=== PATIENT | male | born 1955 | race Caucasian/White ===

== ENCOUNTER 2017-11-04 16:02 | Emergency (ER) | payer MEDICARE ==
[~2017-11-04] VITALS: Ht 180.3 cm; Wt 121.0 kg
[2017-11-04] MEDS ORDERED: MAALOX/HYOSCYAMINE/LIDOCAINE 45 ML BTL ONE (16:59)
[2017-11-04] MEDS ORDERED: ASPIRIN 81 MG TABLET CHEW PO ONE (17:00)
[2017-11-04] MEDS ORDERED: MAALOX/HYOSCYAMINE/LIDOCAINE 45 ML BTL PO ONE (17:00)
[2017-11-04 17:06] VITALS: BP 121/82
[2017-11-04 17:13] LABS: INTERNATIONAL NORMALIZED RATIO 0.99 (0.93-1.1); PROTHROMBIN TIME 10.2 Seconds (9.6-11.5)
[2017-11-04 17:14] LABS: BASOPHILS # (AUTO) 0.02 x10^3/uL (0-0.1); BASOPHILS % (AUTO) 0 % (0-1); EOSINOPHILS # (AUTO) 0.15 x10^3/uL (0-0.4); EOSINOPHILS % (AUTO) 1 % (1-7); LYMPHOCYTES # (AUTO) 2.73 x10^3/uL (1-3.4); LYMPHOCYTES % (AUTO) 25 % (22-44); MD NO; MEAN CORPUSCULAR HEMOGLOBIN 30.2 pg (27.5-34.5); MEAN CORPUSCULAR HGB CONC 33.4 g/dL (33.2-36.2); MEAN CORPUSCULAR VOLUME 90.5 fL (81-97); MEAN PLATELET VOLUME 9.5 fL (7.4-10.4); MONOCYTES # (AUTO) 0.73 x10^3/uL (0.2-0.8); MONOCYTES % (AUTO) 7 % (2-9); NEUTROPHILS # (AUTO) 7.42 x10^3/uL (1.8-6.8); NEUTROPHILS % (AUTO) 67 % (42-75); PLATELET COUNT 226 x10^3/uL (130-400); RED CELL DISTRIBUTION WIDTH 15.2 % (9.4-14.8)
[2017-11-04 17:19] LABS: ALBUMIN 3.6 g/dL (3.4-5.0); ANION GAP 8 mmol/L (5-15); CALCIUM 8.8 mg/dL (8.5-10.1); CHLORIDE 105 mmol/L (98-107)
[2017-11-04 17:25] LABS: CREATININE 0.97 mg/dL (0.7-1.3); TROPONIN I < 0.015 ng/mL (0.000-0.045)
[2017-11-05] MEDS ORDERED: CLOP75TA52 PO (16:02)
[2017-11-05] MEDS ORDERED: LORA10TA3 PO (16:02)
[2017-11-05] MEDS ORDERED: ATOR40TA78 PO (16:02)
[2017-11-05] MEDS ORDERED: HUM100IN4 SC (16:02)
[2017-11-05] MEDS ORDERED: ASPI-496 PO (16:02)
[2017-11-05] MEDS ORDERED: OXYC20TA2 PO (16:02)
[2017-11-05] MEDS ORDERED: LAMO200T2 PO (16:02)
[2017-11-05] MEDS ORDERED: TRAZ100T15 PO (16:02)
[2017-11-05] MEDS ORDERED: TIZA4TAB PO (16:02)
[2017-11-05] MEDS ORDERED: QUIN20TA17 PO (16:02)
[2017-11-05] MEDS ORDERED: MORP60TA PO (16:02)
[2017-11-05] MEDS ORDERED: ALPR1TAB6 PO (16:02)
[2017-11-05] MEDS ORDERED: PREG200C PO (16:02)
[2017-11-05] MEDS ORDERED: ESCI20TA PO (16:02)
[2017-11-05] MEDS ORDERED: METF500T4 PO (16:02)
[2017-11-05] MEDS ORDERED: GLIM4TAB2 PO (16:02)
[2017-11-05] MEDS ORDERED: PANT40TA5 PO (16:02)
[2017-11-05] MEDS ORDERED: LEVO150T5 PO (16:02)
== END 2017-11-04 18:32 | disposition home or self-care (01) ==
LOC: ED 18:15
DX: R07.89 Other chest pain (principal); S76.212A Strain of adductor muscle, fascia and tendon of left thigh, initial encounter; I25.2 Old myocardial infarction; F17.200 Nicotine dependence, unspecified, uncomplicated; X58.XXXA Exposure to other specified factors, initial encounter; Y93.89 Activity, other specified; Y99.8 Other external cause status; Y92.89 Other specified places as the place of occurrence of the external cause
CPT/HCPCS: 36415; 71045; 80048; 82040; 83880; 84484; 85025; 85610; 93005; 99285

== ENCOUNTER 2017-11-05 12:38 | Inpatient (IN) | payer MEDICARE ==
[~2017-11-05] VITALS: Ht 180.3 cm; Wt 114.9 kg
[2017-11-05] MEDS ORDERED: KETAMINE 100 MG/ML, 5ML IV ONE (14:30)
[2017-11-05] MEDS ORDERED: KETAMINE 50 MG/ML, 10ML ONE (14:33)
[2017-11-05 15:11] LABS: TROPONIN I < 0.015 ng/mL (0.000-0.045)
[2017-11-05] MEDS ORDERED: ATOR40TA78 PO (16:02)
[2017-11-05] MEDS ORDERED: LAMO200T2 PO (16:02)
[2017-11-05] MEDS ORDERED: PANT40TA5 PO (16:02)
[2017-11-05] MEDS ORDERED: TIZA4TAB PO (16:02)
[2017-11-05] MEDS ORDERED: METF500T5 PO (16:02)
[2017-11-05] MEDS ORDERED: OXYC20TA2 PO (16:02)
[2017-11-05] MEDS ORDERED: HUM100IN4 SC (16:02)
[2017-11-05] MEDS ORDERED: QUIN20TA17 PO (16:02)
[2017-11-05] MEDS ORDERED: MORP60TA PO (16:02)
[2017-11-05] MEDS ORDERED: TRAZ100T15 PO (16:02)
[2017-11-05] MEDS ORDERED: GLIM4TAB2 PO (16:02)
[2017-11-05] MEDS ORDERED: LORA10TA3 PO (16:02)
[2017-11-05] MEDS ORDERED: PREG200C PO (16:02)
[2017-11-05] MEDS ORDERED: ALPR1TAB6 PO (16:02)
[2017-11-05] MEDS ORDERED: CLOP75TA52 PO (16:02)
[2017-11-05] MEDS ORDERED: ASPI-496 PO (16:02)
[2017-11-05] MEDS ORDERED: LEVO150T5 PO (16:02)
[2017-11-05] MEDS ORDERED: ESCI20TA PO (16:02)
[2017-11-05] MEDS ORDERED: POLYETHYLENE GLYCOL 17 GM PACKET PO PRN (16:30)
[2017-11-05] MEDS ORDERED: ONDANSETRON ODT 4 MG PO PRN (16:30)
[2017-11-05] MEDS ORDERED: ONDANSETRON 2MG/ML, 2ML IVPush PRN (16:30)
[2017-11-05] MEDS ORDERED: DOCUSATE 100 MG CAPSULE PO PRN (16:30)
[2017-11-05] MEDS ORDERED: LABETALOL 5MG/ML, 20ML IVPush PRN (16:30)
[2017-11-05] MEDS ORDERED: ALPRazolam 1MG TABLET PO PRN (16:30)
[2017-11-05] MEDS ORDERED: HEPARIN 5,000 UNITS/ML, 1ML ONE (17:18)
[2017-11-05] MEDS ORDERED: NICOTINE 7 MG/24 HR PATCH.TD24 ONE (17:19)
[2017-11-05] MEDS: HEPARIN 5,000 UNITS/ML, 1ML SQ SCH (17:45)
[2017-11-05] MEDS: NICOTINE 7 MG/24 HR PATCH.TD24 TD SCH (17:45)
[2017-11-05 17:51] LABS: THYROID STIMULATING HORMONE 4.14 mIU/L (0.358-3.740)
[2017-11-05 18:08] LABS: HEMOGLOBIN A1C 9.9 % (4.2-6.3)
[2017-11-05] MEDS ORDERED: ATORVASTATIN 10 MG TABLET PO SCH (21:00)
[2017-11-05] MEDS: LAMOTRIGINE 200 MG TABLET PO SCH (21:15)
[2017-11-05] MEDS: metFORMIN 850 MG TABLET PO SCH (21:15)
[2017-11-05] MEDS: TRAZODONE 50MG TABLET PO SCH (21:15)
[2017-11-05] MEDS: PREGABALIN 200 MG CAPSULE PO SCH (21:16)
[2017-11-05] MEDS: OXYcodone IR 5MG TABLET PO PRN (21:20)
[2017-11-05] MEDS: INSULIN LISPRO 100 UNITS/ML, PEN SQ-INSULIN SCH ×2 (21:25→21:27)
[2017-11-05] MEDS: INSULIN HUMULIN 70/30, 3ML PEN SQ-INSULIN SCH (21:48)
[2017-11-06 00:08] VITALS: BP 144/74
[2017-11-06] MEDS: HEPARIN 5,000 UNITS/ML, 1ML SQ SCH ×3 (01:05→17:14)
[2017-11-06 05:56] LABS: BASOPHILS # (AUTO) 0.06 x10^3/uL (0-0.1); BASOPHILS % (AUTO) 1 % (0-1); EOSINOPHILS # (AUTO) 0.16 x10^3/uL (0-0.4); EOSINOPHILS % (AUTO) 2 % (1-7); LYMPHOCYTES # (AUTO) 3.16 x10^3/uL (1-3.4); LYMPHOCYTES % (AUTO) 37 % (22-44); MD NO; MEAN CORPUSCULAR HGB CONC 32.9 g/dL (33.2-36.2); MEAN CORPUSCULAR VOLUME 91.3 fL (81-97); MEAN PLATELET VOLUME 9.5 fL (7.4-10.4); MONOCYTES # (AUTO) 0.66 x10^3/uL (0.2-0.8); MONOCYTES % (AUTO) 8 % (2-9); NEUTROPHILS # (AUTO) 4.41 x10^3/uL (1.8-6.8); NEUTROPHILS % (AUTO) 52 % (42-75); PLATELET COUNT 195 x10^3/uL (130-400); RED BLOOD COUNT 4.82 x10^6/uL (4.38-5.82); RED CELL DISTRIBUTION WIDTH 15.2 % (9.4-14.8)
[2017-11-06 06:10] LABS: ALBUMIN 3.2 g/dL (3.4-5.0); ANION GAP 7 mmol/L (5-15); CALCIUM 8.2 mg/dL (8.5-10.1); CHLORIDE 104 mmol/L (98-107)
[2017-11-06 06:12] LABS: ALANINE AMINOTRANSFERASE 80 U/L (12-78); ALKALINE PHOSPHATASE 115 U/L (45-117); BILIRUBIN,TOTAL 0.5 mg/dL (0.2-1.0); CREATININE 1.12 mg/dL (0.7-1.3); TOTAL PROTEIN 6.3 g/dL (6.4-8.2)
[2017-11-06] MEDS ORDERED: NITROGLYCERIN 0.4 MG/SPRAY SL PRN ×2 (06:30)
[2017-11-06] MEDS ORDERED: NITROGLYCERIN 0.4 MG BOTTLE (25 TABS) SL PRN (06:30)
[2017-11-06 06:39] VITALS: BP 167/71
[2017-11-06 07:09] LABS: CHOL/HDL RATIO 3.6; LDL/HDL RATIO 1.7 (0.5-3.0)
[2017-11-06 07:47] LABS: TROPONIN I < 0.015 ng/mL (0.000-0.045)
[2017-11-06] MEDS: INSULIN LISPRO 100 UNITS/ML, PEN SQ-INSULIN SCH ×4 (08:00→20:54)
[2017-11-06] MEDS: INSULIN HUMULIN 70/30, 3ML PEN SQ-INSULIN SCH (08:00)
[2017-11-06] MEDS: PREGABALIN 200 MG CAPSULE PO SCH ×2 (08:01→20:40)
[2017-11-06] MEDS: LORATADINE 10 MG TABLET PO SCH (08:01)
[2017-11-06] MEDS: CLOPIDOGREL 75 MG TABLET PO SCH (08:01)
[2017-11-06] MEDS: QUINAPRIL 20MG TABLET PO SCH (08:01)
[2017-11-06] MEDS: GLIMEPIRIDE 4 MG TABLET PO SCH (08:01)
[2017-11-06] MEDS: PANTOPROZOLE 40MG TABLET PO SCH (08:01)
[2017-11-06] MEDS: metFORMIN 850 MG TABLET PO SCH ×3 (08:01→20:40)
[2017-11-06] MEDS: CITALOPRAM 20 MG TABLET PO SCH (08:02)
[2017-11-06] MEDS: LEVOTHYROXINE 150 MCG TABLET PO SCH (08:02)
[2017-11-06] MEDS: LAMOTRIGINE 200 MG TABLET PO SCH ×2 (08:02→20:40)
[2017-11-06] MEDS: ASPIRIN 81 MG TABLET EC PO SCH (08:02)
[2017-11-06] MEDS: OXYcodone IR 5MG TABLET PO PRN ×2 (08:02→12:52)
[2017-11-06] MEDS ORDERED: REGADENOSON 0.4 MG/5 ML SYRINGE ONE (10:53)
[2017-11-06 12:48] VITALS: BP 135/81
[2017-11-06] MEDS: NICOTINE 7 MG/24 HR PATCH.TD24 TD SCH (17:13)
[2017-11-06 18:25] VITALS: BP 122/67
[2017-11-06] MEDS: TRAZODONE 50MG TABLET PO SCH (20:39)
[2017-11-06] MEDS ORDERED: ATORVASTATIN 40 MG TABLET PO SCH (21:00)
[2017-11-06] MEDS ORDERED: INSULIN GLARGINE 100 UNITS/ML, PEN SQ-INSULIN SCH (21:00)
[2017-11-07] MEDS: HEPARIN 5,000 UNITS/ML, 1ML SQ SCH ×2 (00:57→08:49)
[2017-11-07 03:36] VITALS: BP 112/80
[2017-11-07] MEDS: ACETAMINOPHEN 325 MG TABLET PO PRN ×2 (04:02→13:00)
[2017-11-07] MEDS: INSULIN LISPRO 100 UNITS/ML, PEN SQ-INSULIN SCH ×2 (07:00→11:00)
[2017-11-07 08:10] VITALS: BP 150/86
[2017-11-07] MEDS: OXYcodone IR 5MG TABLET PO PRN (08:33)
[2017-11-07] MEDS: CLOPIDOGREL 75 MG TABLET PO SCH (08:34)
[2017-11-07] MEDS: ASPIRIN 81 MG TABLET EC PO SCH (08:34)
[2017-11-07] MEDS: metFORMIN 850 MG TABLET PO SCH (08:34)
[2017-11-07] MEDS: GLIMEPIRIDE 4 MG TABLET PO SCH (08:34)
[2017-11-07] MEDS: QUINAPRIL 20MG TABLET PO SCH (08:35)
[2017-11-07] MEDS: PREGABALIN 200 MG CAPSULE PO SCH (08:48)
[2017-11-07] MEDS: LAMOTRIGINE 200 MG TABLET PO SCH (08:48)
[2017-11-07] MEDS: LORATADINE 10 MG TABLET PO SCH (08:49)
[2017-11-07] MEDS: LEVOTHYROXINE 150 MCG TABLET PO SCH (08:49)
[2017-11-07] MEDS: PANTOPROZOLE 40MG TABLET PO SCH (08:49)
[2017-11-07] MEDS: CITALOPRAM 20 MG TABLET PO SCH (08:49)
== END 2017-11-07 15:30 | disposition home or self-care (01) | DRG 309 ==
LOC: ED 15:50 → EDIP 15:51 → ED 16:16 → 5SO 18:22
PROVIDERS: ADMIT Family Medicine; ATTEND Family Medicine
DX: R00.1 Bradycardia, unspecified (principal); I24.9 Acute ischemic heart disease, unspecified; Z95.5 Presence of coronary angioplasty implant and graft; E11.9 Type 2 diabetes mellitus without complications; F32.9 Major depressive disorder, single episode, unspecified; F41.9 Anxiety disorder, unspecified; E03.9 Hypothyroidism, unspecified; M79.605 Pain in left leg; F17.210 Nicotine dependence, cigarettes, uncomplicated; G47.33 Obstructive sleep apnea (adult) (pediatric); G89.29 Other chronic pain; I10 Essential (primary) hypertension; I25.10 Atherosclerotic heart disease of native coronary artery without angina pectoris; M51.36 Other intervertebral disc degeneration, lumbar region; E11.649 Type 2 diabetes mellitus with hypoglycemia without coma; Z79.899 Other long term (current) drug therapy; Z79.82 Long term (current) use of aspirin; I25.2 Old myocardial infarction; Z79.4 Long term (current) use of insulin
CPT/HCPCS: 36415; 72110; 78452; 80053; 80061; 82962; 83036; 83880; 84443; 84484; 85025; 93005; 93017; 93306; 94660; 96374; J1644; J2405; J2785; A9502; C9898; J1815

== ENCOUNTER 2018-03-21 12:09 | Observation (INO) | payer MEDICARE ==
[~2018-03-21] VITALS: Ht 180.3 cm; Wt 118.0 kg
[~2018-03-21 12:09] MED LIST: ALPR1TAB6 PO; ASPI-496 PO; ATOR40TA78 PO; CLOP75TA52 PO; ESCI20TA PO; GLIM4TAB2 PO; HUM100IN4 SC; LAMO200T2 PO; LEVO150T5 PO; LORA10TA3 PO; METF500T17 PO; MORP60TA PO; OXYC20TA2 PO; PANT40TA5 PO; PREG200C PO; QUIN20TA17 PO; TIZA4TAB PO; TRAZ-137 PO
[2018-03-21 12:57] LABS: BASOPHILS # (AUTO) 0.06 x10^3/uL (0-0.1); BASOPHILS % (AUTO) 1 % (0-1); EOSINOPHILS # (AUTO) 0.23 x10^3/uL (0-0.4); EOSINOPHILS % (AUTO) 3 % (1-7); LYMPHOCYTES # (AUTO) 2.28 x10^3/uL (1-3.4); LYMPHOCYTES % (AUTO) 29 % (22-44); MD NO; MEAN CORPUSCULAR HEMOGLOBIN 30.4 pg (27.5-34.5); MEAN CORPUSCULAR HGB CONC 32.8 g/dL (33.2-36.2); MEAN CORPUSCULAR VOLUME 92.7 fL (81-97); MEAN PLATELET VOLUME 9.3 fL (7.4-10.4); MONOCYTES % (AUTO) 6 % (2-9); NEUTROPHILS # (AUTO) 4.74 x10^3/uL (1.8-6.8); NEUTROPHILS % (AUTO) 61 % (42-75); PLATELET COUNT 189 x10^3/uL (130-400); RED BLOOD COUNT 4.74 x10^6/uL (4.38-5.82); RED CELL DISTRIBUTION WIDTH 13.6 % (9.4-14.8)
[2018-03-21 13:06] LABS: INTERNATIONAL NORMALIZED RATIO 0.96 (0.93-1.1)
[2018-03-21 13:09] LABS: ALANINE AMINOTRANSFERASE 24 U/L (12-78); ALBUMIN 3.4 g/dL (3.4-5.0); ANION GAP 8 mmol/L (5-15); CALCIUM 8.3 mg/dL (8.5-10.1); CHLORIDE 102 mmol/L (98-107); CREATININE 0.86 mg/dL (0.7-1.3)
[2018-03-21 13:10] LABS: AMPHETAMINE SCREEN, URINE Negative (Negative); BARBITURATE SCREEN, URINE Negative (Negative); BENZODIAZEPINE SCREEN, URINE Positive (Negative); CANNABINOID SCREEN, URINE Negative (Negative); COCAINE SCREEN, URINE Negative (Negative); METHADONE SCREEN, URINE Negative (Negative); OPIATE SCREEN, URINE Positive (Negative)
[2018-03-21 13:12] LABS: ALKALINE PHOSPHATASE 90 U/L (45-117); BILIRUBIN,TOTAL 0.4 mg/dL (0.2-1.0); TOTAL PROTEIN 6.6 g/dL (6.4-8.2); TROPONIN I < 0.015 ng/mL (0.000-0.045)
[2018-03-21] MEDS ORDERED: ASPIRIN 325 MG TABLET PO ONE (13:30)
[2018-03-21] MEDS ORDERED: ACETAMINOPHEN 325 MG TABLET PO PRN (14:00)
[2018-03-21] MEDS ORDERED: LABETALOL 5MG/ML, 20ML IVPush PRN (14:00)
[2018-03-21] MEDS ORDERED: ENALAPRILAT 1.25 MG/ML, 2ML IVPush PRN (14:00)
[2018-03-21] MEDS ORDERED: ENOXAPARIN 40 MG/0.4 ML SQ SCH (14:00)
[2018-03-21] MEDS ORDERED: ONDANSETRON 2MG/ML, 2ML IVPush PRN (14:00)
[2018-03-21] MEDS ORDERED: NICOTINE 14MG/24 HR PATCH.TD24 TD SCH (14:00)
[2018-03-21] MEDS ORDERED: morphine SULFATE 10 MG/ML, 1ML IVPush PRN (14:00)
[2018-03-21] MEDS ORDERED: hydrALAzine 20 MG/ML, 1ML IVPush PRN (14:00)
[2018-03-21] MEDS: PLEASE ENTER HEIGHT MC SCH ×2 (14:30→21:39)
[2018-03-21 14:39] VITALS: BP 146/65
[2018-03-21] MEDS: metFORMIN 850 MG TABLET PO SCH ×2 (16:16→20:13)
[2018-03-21] MEDS: OXYcodone IR 5MG TABLET PO PRN ×2 (16:16→20:13)
[2018-03-21] MEDS: INSULIN LISPRO 100 UNITS/ML, PEN SQ-INSULIN SCH ×2 (18:35→20:45)
[2018-03-21 20:00] VITALS: BP 123/70
[2018-03-21] MEDS ORDERED: ATORVASTATIN 10 MG TABLET PO SCH (21:00)
[2018-03-22 01:05] VITALS: BP 102/67
[2018-03-22] MEDS: OXYcodone IR 5MG TABLET PO PRN (04:29)
[2018-03-22 05:35] LABS: BASOPHILS # (AUTO) 0.09 x10^3/uL (0-0.1); BASOPHILS % (AUTO) 1 % (0-1); EOSINOPHILS # (AUTO) 0.38 x10^3/uL (0-0.4); EOSINOPHILS % (AUTO) 4 % (1-7); LYMPHOCYTES % (AUTO) 36 % (22-44); MD NO; MEAN CORPUSCULAR HEMOGLOBIN 31.5 pg (27.5-34.5); MEAN CORPUSCULAR VOLUME 92.6 fL (81-97); MEAN PLATELET VOLUME 10.2 fL (7.4-10.4); MONOCYTES # (AUTO) 0.62 x10^3/uL (0.2-0.8); MONOCYTES % (AUTO) 7 % (2-9); NEUTROPHILS # (AUTO) 4.69 x10^3/uL (1.8-6.8); NEUTROPHILS % (AUTO) 52 % (42-75); PLATELET COUNT 192 x10^3/uL (130-400); RED BLOOD COUNT 4.45 x10^6/uL (4.38-5.82)
[2018-03-22 05:42] LABS: ANION GAP 9 mmol/L (5-15); CALCIUM 8.6 mg/dL (8.5-10.1); CHLORIDE 105 mmol/L (98-107); CHOLESTEROL, TOTAL 141 mg/dL (140-239); CREATININE 0.83 mg/dL (0.7-1.3)
[2018-03-22 05:45] LABS: CHOL/HDL RATIO 5.4; HDL CHOL % 18 % (26-37); HDL CHOLESTEROL (DIRECT) 26 mg/dL (40-60); LDL CHOLESTEROL,CALCULATED 79 mg/dL (54-169); TRIGLYCERIDES 181 mg/dL (50-200); VLDL CHOLESTEROL 36 mg/dL (0-25)
[2018-03-22 06:40] VITALS: BP 147/76
[2018-03-22] MEDS: INSULIN LISPRO 100 UNITS/ML, PEN SQ-INSULIN SCH ×2 (08:26→13:04)
[2018-03-22] MEDS: metFORMIN 850 MG TABLET PO SCH (08:28)
[2018-03-22] MEDS ORDERED: LEVOTHYROXINE 150 MCG TABLET PO SCH (09:00)
[2018-03-22] MEDS ORDERED: PREGABALIN 200 MG CAPSULE PO SCH (09:00)
[2018-03-22] MEDS ORDERED: ASPIRIN 81 MG TABLET CHEW PO/NG SCH (09:00)
[2018-03-22] MEDS ORDERED: CITALOPRAM 20 MG TABLET PO SCH (09:00)
[2018-03-22] MEDS ORDERED: LAMOTRIGINE 200 MG TABLET PO SCH (09:00)
[2018-03-22] MEDS ORDERED: CLOPIDOGREL 75 MG TABLET PO SCH (09:00)
== END 2018-03-22 15:44 | disposition home or self-care (01) ==
LOC: ED 13:31 → INTOOBSV 13:32 → EDIP 13:32 → ED 14:13 → 4EST 14:23
PROVIDERS: ADMIT Family Medicine; ATTEND Family Medicine
DX: G45.9 Transient cerebral ischemic attack, unspecified (principal); J84.9 Interstitial pulmonary disease, unspecified; E03.9 Hypothyroidism, unspecified; E11.65 Type 2 diabetes mellitus with hyperglycemia; I25.10 Atherosclerotic heart disease of native coronary artery without angina pectoris; F32.9 Major depressive disorder, single episode, unspecified; G47.33 Obstructive sleep apnea (adult) (pediatric); I10 Essential (primary) hypertension; F17.210 Nicotine dependence, cigarettes, uncomplicated; Z79.82 Long term (current) use of aspirin; Z95.5 Presence of coronary angioplasty implant and graft; Z79.4 Long term (current) use of insulin; Z79.899 Other long term (current) drug therapy
CPT/HCPCS: 36415; 70450; 70551; 71045; 80048; 80053; 80061; 80307; 82962; 84484; 85025; 85610; 85730; 90471; 90656; 93005; 93880; 96372; 96374; 99285; G0378; J1650; J1815; J2405

== ENCOUNTER 2018-12-11 09:09 | Emergency (ER) | payer MEDICARE ==
[~2018-12-11] VITALS: Ht 180.3 cm; Wt 110.9 kg
[2018-12-11 12:30] VITALS: BP 114/59
== END 2018-12-11 13:15 | disposition home or self-care (01) ==
LOC: ED 11:25
DX: S76.111A Strain of right quadriceps muscle, fascia and tendon, initial encounter (principal); E11.9 Type 2 diabetes mellitus without complications; I25.2 Old myocardial infarction; I25.10 Atherosclerotic heart disease of native coronary artery without angina pectoris; Z86.73 Personal history of transient ischemic attack (TIA), and cerebral infarction without residual deficits; W18.30XA Fall on same level, unspecified, initial encounter; Y93.89 Activity, other specified; Y92.009 Unspecified place in unspecified non-institutional (private) residence as the place of occurrence of the external cause; Y99.8 Other external cause status
CPT/HCPCS: 99284